=== PATIENT | female | born 1955 | race Caucasian/White ===

== ENCOUNTER 2024-03-15 06:11 | Day surgery (SDC) | payer MEDICARE, SELFPAY ==
[2024-03-15 06:25] VITALS: BP 152/80; PULSE 52; RESP 16; TEMP 36.6; O2SAT 100
--- NOTE | 2024-03-15 06:48 | W.PM.OP ---
Date of service: 03/15/24 Time of Service: 07:30 Operative Note Operative Note DATE OF PROCEDURE: 03/15/24 PRE-OP DIAGNOSIS: Left middle trigger finger PROCEDURE: Left middle finger trigger release, CPT# 09927 SURGEON: Tunde Turner [employer] FIELD SERVICE ENGINEER: None None ANESTHESIA TYPE: Local By Surgeon Refer to Anesthesia Record ESTIMATED BLOOD LOSS: 1 TOURNIQUET TIME: 0 COMPLICATIONS: None Patient was transported to: same day Patient's condition: stable Indications: Please see complete medical record for details. Procedure Description: In the operating room, the patient was positioned supine on the stretcher. All bony prominences were padded. Preoperative antibiotics were omitted. The correct patient, procedure, and side of the procedure were all verified prior to beginning. Local anesthesia was induced about the site with 10cc of 1% lidocaine containing epinephrine buffered with 1 cc of sodium bicarbonate. The Left hand was prepped and draped in the usual sterile fashion. Proper analgesia was confirmed. A small volar longitudinal approach was made overlying the middle MCP joint. Soft tissues were swept to the sides and retracted to expose the A1 akua. The release was started centrally with a knife and completed at the proximal and distal margins with tenotomy scissors. Care was taken to protect the flexor tendons. The tendons were inspected and showed moderate tenosynovitis, which was removed, and superficial fraying, but no significant tearing. Appropriate flexor tendon excursion was confirmed. The patient readily demonstrated full range of motion of the finger without triggering. The small incision was irrigated and then dried. Hemostasis was appropriate. The incision was closed using 3-0 nylon in a horizontal mattress fashion. Xeroform was applied followed by gauze and the hand was gently compressed with an Santiago bandage. The patient tolerated local anesthesia without complication and was transferred out of the operating room in a stable condition.
--- NOTE | 2024-03-15 07:13 | W.PM.DSUDISC ---
Date of service: 03/15/24 Time of Service: 09:00 Discharge Plan Disposition Patient Disposition: Home Condition: Stable Discharge Details Attending Provider: Tunde Turner Primary Care Provider: Burak Elizabeth Home Meds and New Rx's Prescriptions: Continued magnesium 200 mg tablet 200 mg PO DAILY Probiotic (B. coagulans) 10 billion cell capsule,delayed release(DR/EC) PO cyanocobalamin (vitamin B-12) 1,000 mcg capsule 1,000 mcg PO DAILY ascorbate calcium (vitamin C) 500 mg tablet 500 mg PO DAILY cholecalciferol (vitamin D3) 25 mcg (1,000 unit) capsule 25 mcg PO DAILY Discharge Instructions Additional Instructions: Surgery: Left middle finger trigger release Activity: Protect hand for a few weeks. Gently increase finger motion and hand gripping to prevent stiffness. Recommend elevation to minimize swelling and discomfort. Prescriptions: None Resume home medicines, use [id number] Tylenol (acetaminophen) as needed for mild pain and ibuprofen (Motrin) or naproxen (Aleve) as needed for moderate to severe pain and swelling. Dressings: Leave dressing in place for 3 days. May then remove and leave open to air or cover incision with Band-Aid. May get wet after 5 days. Follow-up: 10-[address] Turner Please call the office during business hours with any questions or concerns. Discharge Orders Discharge Orders: Discharge Order (Routine); Ordered 03/15/24 Ordered By: Tunde Turner DS: Diagnosis Discharge Diagnosis (1) Trigger finger, left middle finger: Status: Acute
[2024-03-15] MEDS: Lidocaine 1% Multi-Dose W/EPI 1/100,000 50 ML VIAL (07:25)
[2024-03-15] MEDS: Sodium Bicarbonate 50 MEQ/50 ML VIAL (07:25)
[2024-03-15 07:57] VITALS: BP 134/72; PULSE 66; RESP 16; TEMP 36.6; O2SAT 98
== END 2024-03-15 08:08 | disposition home or self-care (01) ==
PROVIDERS: PCP Nurse Practitioner Family; Visit Provider Student in an Organized Health Care Education/Training Program
PROC: (CPT 26055; principal; 2024-03-15 07:30)
DX: M65.332 Trigger finger, left middle finger (principal)
CPT/HCPCS: 26055; J2004

== ENCOUNTER → 2024-03-27 08:46 | Outpatient (BNVA) | payer MEDICARE, SELFPAY | PROVIDERS: PCP Nurse Practitioner Family; Visit Provider Student in an Organized Health Care Education/Training Program | DX: Z47.89 Encounter for other orthopedic aftercare (principal); M25.642 Stiffness of left hand, not elsewhere classified ==

== ENCOUNTER → 2024-05-08 13:03 | Outpatient (BNVA) | payer MEDICARE, SELFPAY | PROVIDERS: PCP Nurse Practitioner Family; Referring Provider Nurse Practitioner Family; Visit Provider Student in an Organized Health Care Education/Training Program | DX: Z47.89 Encounter for other orthopedic aftercare (principal); M79.642 Pain in left hand ==